=== PATIENT | female | born 1960 | race Caucasian/White ===

== ENCOUNTER → 2020-09-30 | Outpatient (CLI) | payer OTHER ==
[~2020-09-30] MED LIST: ALLEGRA ALLERG180 MG PO; CATAFLAM 50 MG PO; CELEBREX200MG PO; FLONASE ALLERG9.9 ML NASAL; GILTUSS TR TAB1 EACH PO; HYZAAR 100-121 UDTAB; LIPITOR20 MG; NORFLEX 60 MG IM; NORFLEX100MG PO; ORPH100T PO; SKELAXIN800 MG PO; SYNTHROID112 MCG; TORADOL60 MG IM
== END | disposition home or self-care (01) ==
LOC: OFIC 805 10:45
PROVIDERS: ATTEND Otolaryngology Otology & Neurotology
DX: H92.02 Otalgia, left ear (principal); H69.82 Other specified disorders of Eustachian tube, left ear; H74.8X2 Other specified disorders of left middle ear and mastoid